=== PATIENT | male | born 1965 | race Caucasian/White ===

== ENCOUNTER → 2023-08-30 | Outpatient (CLI) | payer OTHER ==
[2023-08-30 10:22] LABS: CHOL/HDL RATIO 5.2; Cholesterol 294 mg/dL (50-200); HDL Cholesterol 57 mg/dL (>39); LDL/HDL RATIO 3.8; Low Density Lipoprotein Chol 217 mg/dL (0-110); Triglycerides 99 mg/dL (30-160); Very Low Density Lipoprot Chol 19 mg/dL (6-32)
[2023-09-03 12:22] LABS: TESTOSTERONE, FREE BY DIALYSIS 34.5 pg/mL (47.0-244.0); TESTOSTERONE, TOTAL MASS SPEC 284.1 ng/dL (300.0-890.0)
== END | disposition home or self-care (01) ==
LOC: LAB SHORT 08:24 → LAB 08:24
PROVIDERS: Nurse Practitioner Family
DX: Z13.6 Encounter for screening for cardiovascular disorders (principal); R53.81 Other malaise
CPT/HCPCS: 36415; 80061; 84402; 84403

== ENCOUNTER → 2023-12-06 | Outpatient (CLI) | payer OTHER ==
[2023-12-06 10:10] LABS: CHOL/HDL RATIO 4.4; Cholesterol 214 mg/dL (50-200); HDL Cholesterol 49 mg/dL (>39); LDL/HDL RATIO 2.9; Low Density Lipoprotein Chol 143 mg/dL (0-110); Triglycerides 111 mg/dL (30-160); Very Low Density Lipoprot Chol 22 mg/dL (6-32)
== END | disposition home or self-care (01) ==
LOC: LAB 08:21 → LAB SHORT 08:21
PROVIDERS: Nurse Practitioner Family
DX: E78.2 Mixed hyperlipidemia (principal)
CPT/HCPCS: 80061

== ENCOUNTER → 2024-07-26 | Outpatient (CLI) | payer OTHER ==
[2024-08-01 20:43] LABS: TESTOSTERONE, FREE BY DIALYSIS 91.1 pg/mL (47.0-244.0); TESTOSTERONE, TOTAL MASS SPEC 488.8 ng/dL (300.0-890.0)
== END ==
LOC: LAB SHORT 08:10 → LAB 08:10
PROVIDERS: Nurse Practitioner Family
DX: E29.1 Testicular hypofunction (principal)
CPT/HCPCS: 84402; 84403